=== PATIENT | female | born 1975 | race African-American/Black ===

== ENCOUNTER 2016-12-01 12:48 | Emergency (ER) | payer MEDICARE, OTHER ==
[~2016-12-01] VITALS: Ht 157.5 cm; Wt 104.3 kg
--- NOTE | ~2016-12-01 | CR72 ---
[facility] A Service of [facility] & [facility] RADIOLOGY TEXT RESULTS PATIENT: CINDY WOOD LOCATION: [facility] : 71 UNIT #: [id number] AGE: [address]: Sudha Hughes MD SEX: F ORDER DR: [id number] [facility] [address] [place], [place] [address] [id number] MR#: [id number] Acc #: [id number] NAME: CINDY WOOD : 1975 SEX: F STUDY DATE/TIME: 12/01/2016 13:47 UNIT: [facility] ROOM: STUDY DESCRIPTION: CR Chest Single View Portable Attending Physician: Sudha Hughes M.D. Ordering Physician: Sudha Hughes M.D. Primary Care Physician: Generic Doctor Not In System MEDICAL IMAGING REPORT This report is preliminary unless electronic signature is present EXAMINATION AP portable chest. DATE 12/01/2016 at 13:47. HISTORY 41-year-old female with shortness of breath, cough, congestion and chest pressure for 1 week. COMPARISON AP portable chest, 03/29/2012. FINDINGS A single AP portable view of the chest shows both lungs to be clear. The heart is normal in size. The mediastinal contour is normal. No significant bone abnormalities are seen. IMPRESSION Normal portable chest. Dictated by... Ene Allen M.D. THIS IS AN ELECTRONICALLY VERIFIED REPORT Ene Allen M.D. at 12/02/2016 9:40 AM BRYANT/nayely TD: 12/01/2016 14:32 JOB #: [id number] MEDICAL IMAGING REPORT Page 1 of 1 COPY
--- NOTE | ~2016-12-01 | EKG ---
PATIENT: CINDY WOOD UNIT #: [id number] Ventricular Rate: 93 BPM Atrial Rate: 93 BPM P-R Interval: 130 ms QRS Duration: 70 ms Q-T Interval: 368 ms QTC Calculation(Bezet): 457 ms P [place]: 75 degrees Calculated R [place]: 54 degrees Calculated T [place]: 62 degrees Diagnosis Line: Sinus rhythm with Premature supraventricular Diagnosis Line: complexes Diagnosis Line: Right atrial enlargement Diagnosis Line: Borderline ECG Diagnosis Line: No previous ECGs available Diagnosis Line: Confirmed by KELSEY ELLIS MD ([id number]) on Diagnosis Line: 12/02/2016 9:44:48 AM INTERPRETING MD: RHONDA GARAY
[~2016-12-01 12:48] MED LIST: TOFRANIL; ZOLOFT
[2016-12-01 13:37] LABS: POC - CKMB 1.3 ng/mL (0.0-7.9); POC - TROPONIN <0.05 ng/mL (<=0.05)
[2016-12-01 13:46] LABS: BASOPHIL# 0.1 X10e3 (0-0.3); BASOPHIL% 0.6 % (0-2.5); EOSINOPHIL# 0.4 X10e3 (0-0.7); EOSINOPHIL% 3.8 % (0.0-7.0); HEMOGLOBIN 11.5 gm/dL (12.0-16.0); LYMPHOCYTE# 2.3 X10e3 (1.0-3.5); LYMPHOCYTE% 20.2 % (17.0-45.0); MEAN CELL VOLUME 81.4 FL (83-96); MEAN CORPUSCULAR HGB CONC 31.9 g/dL (30-36); MEAN PLATELET VOLUME 9.4 FL (6.5-11.5); MONOCYTE# 0.8 X10e3 (0-1.0); NEUTROPHIL# 7.9 X10e3 (1.5-7.1); NEUTROPHIL% 68.4 % (40-75); PLATELET COUNT 333 X10e3 (140-420); RED BLOOD COUNT 4.42 X10e (3.90-5.30); RED CELL DISTRIBUTION WIDTH 16.8 % (11.0-15.5); WHITE BLOOD COUNT 11.6 X10e3 (4.0-10.5)
[2016-12-01 13:53] LABS: DIFF IND NO
[2016-12-01 14:13] LABS: ALKALINE PHOSPHATASE 82 U/L (32-92); ALT (SGPT) 30 U/L (10-40); AST (SGOT) 27 U/L (10-42); BILIRUBIN,TOTAL 0.2 mg/dL (0.2-2.0); BLOOD UREA NITROGEN 6 mg/dL (9-23); CALCIUM SERUM 8.8 mg/dL (8.4-10.2); CARBON DIOXIDE 22 mmol/L (22-31); CHLORIDE 106 mmol/L (100-111); CREATININE SERUM 0.6 mg/dL (0.6-1.4); GLOM FILT RATE Estimated 129.4 mL/min (>60); GLUCOSE FASTING 99 mg/dL (70-110); MAGNESIUM 1.9 mg/dL (1.6-3.0); POTASSIUM 3.9 mmol/L (3.5-5.1); PROTEIN TOTAL SERUM 7.7 g/dL (6.0-8.3); SODIUM 137 mmol/L (135-145)
[2016-12-01 14:14] LABS: BILIRUBIN, DIRECT <0.1 mg/dL (0.0-0.2); BILIRUBIN,INDIRECT 0.1 mg/dL (0.0-0.9)
[2016-12-01 14:21] LABS: PARTIAL THROMBOPLASTIN TIME 28.1 SECONDS (23.5-31.3); PROTHROMBIN TIME (PATIENT) 11.1 SECONDS (10.0-11.7)
[2016-12-01 14:47] LABS: POC - CKMB 1.2 ng/mL (0.0-7.9); POC - TROPONIN <0.05 ng/mL (<=0.05)
== END 2016-12-01 16:40 | disposition home or self-care (01) ==
LOC: CED 12:48
PROVIDERS: Emergency Medicine
DX: J20.9 Acute bronchitis, unspecified (principal); E11.9 Type 2 diabetes mellitus without complications
CPT/HCPCS: 36415; 71010; 80048; 80076; 82553; 83735; 83880; 84484; 85025; 85610; 85730; 93005; 99285